=== PATIENT | female | born 1975 | race Caucasian/White ===

== ENCOUNTER 2024-11-03 09:12 | Day surgery (SDC) | payer BC, SELFPAY ==
--- NOTE | 2024-11-02 06:05 | PDOC.DSDIS_ITS ---
Date of service: 11/03/24 Discharge Plan Disposition Patient Disposition: Home Condition: Good Discharge Details Reason For Visit: screening colonoscopy Attending Provider: Iggy Pham Home Meds and New Rx's Prescriptions: Continued citalopram [Celexa] 20 mg tablet 20 mg PO DAILY CombiPatch 0.05-0.14 mg/24 hr patch semiweekly 1 patch transdermal ONCE Patient Comments: pt. wears for menopausal symptoms ergocalciferol (vitamin D2) 1,250 mcg (50,000 unit) capsule 1,250 mcg PO DAILY Discontinued bisacodyl [Dulcolax (bisacodyl)] 5 mg tablet,delayed release (DR/EC) 5 mg PO ONCE Qty: 4 0RF Rx Instructions: Take per colonoscopy instructions provided by ordering providers office polyethylene glycol 3350 17 gram/dose powder 17 g PO ONCE Qty: 238 0RF Rx Instructions: Take per colonoscopy instructions provided by ordering providers office Discharge Instructions Instructions: Colon polyps, Diverticulosis Additional Instructions: Tana, it was very nice meeting you today, and I hope you are comfortable through the colonoscopy. Everything went very smoothly. Your prep was e xcellent negative everything fine. I took great care to examine the ascending portion of your colon, which is where your previous polyp was reported. Although it is quite difficult to find exact areas where polyps were removed in the past, I certainly did not see anything that would suggest incomplete resection of that previous polyp. I did find 1 other separate polyp within your rectum. I did remove and retrieve this today. This polyp will be sent off for testing, and once I know the nature of it, I can offer you more specific recommendations regarding timing of future colonoscopies. Incidentally, he also have a little bit of diverticulosis. Diverticula are little weak spots in the muscular layer of the colon wall. This causes the inside lining of the colon, which is also called the mucosa, to pocket her pouch outwards through the muscular layer. These individual pockets are called diverticula. The condition of having them is noticed diverticulosis, and if they cause symptoms, which are typically experienced as quite sharp pain usually on the left lower side of the abdomen, and we refer to that as diverticulitis. Hopefully, your diverticula never bother you. Maintaining a diet that is rich in fiber, staying well- hydrated, and avoiding symptoms of constipation are the typical approaches in managing diverticular disease. I will attach some basic information here about colon rectal polyps, as well as diverticulosis. If you have any questions, or need anything, please do not hesitate to call, otherwise my office will be in touch once the polyp report is available. 1. If tolerated, consume a soft, low fiber diet for 1-2 days. 2[address] Do not drive, drink alcohol, operate machinery, make critical decisions, or do activities that require coordination or balance for 24 hours. 3. Because air was put into your colon during the procedure, expelling air from your rectum (passing gas or farting) is normal. 4. You may not have a bowel movement for 1-3 days because of the colonoscopy prep. This is normal. 5. Go directly to the emergency room if you notice any of the following: Develop chills (warm to touch), or if you have a thermometer and your temperature is above 101 Difficulty breathing or difficultly swallowing Persistent vomiting Severe abdominal pain, other than gas cramps Severe chest pain Black, tarry stools Any bleeding ? exceeding one tablespoon 6. Call your physician if the site where your intravenous was started becomes red, swollen, painful, and warm to touch. 7. Your physician has reviewed your pre-procedure medications. Please continue to take those medications as previously ordered. You will be given specific information/education regarding any changes to your medications before leaving. Stand Alone Forms: Anesthesia Discharge InstYolanda Angulo (DSU) Activity:: Activity as Tolerated Diet:: As Tolerated Discharge Orders Discharge Orders: Discharge Order (Routine); Ordered 11/02/24 Ordered By: Iggy Pham DS: Diagnosis Discharge Diagnosis (1) Encounter for screening colonoscopy: Status: Acute Asessment and Plan: Follow-up on polypectomy results
--- NOTE | 2024-11-02 06:06 | COLE_ITS ---
Date of service: 11/03/24 Time of Service: 11:21 Colonoscopy Report Date of procedure: 11/03/24 Pre-op diagnosis general: screening colonoscopy Post-op diagnosis procedure note: other (Rectal polyp, diverticulosis) Procedure: colonoscopy with polypectomy Surgeon: Iggy Pham Anesthesia Type: General:No Airway Estimated blood loss (mL): 5 Pathology: other (0.25 cm pedunculated rectal polyp) Complications: None Disposition: same day Indications: Tana is a 48 year old woman who underwent screening colonoscopy approximately 6 months ago. She underwent a polypectomy, however no specimen was captured. She was advisded to undergo a repeat colonoscopy Prep: Miralax/Dulcolax Procedure Start Time: 10:55 Procedure End Time: 11:10 Retraction Time: 8 Findings: Sigmoid diverticulosis, 0.25 cm rectal polyp Procedure Description: After the induction of anesthesia, and with Tana in left lateral decubitus position, I began by performing an external anorectal exam.? Perineum and skin were normal, as was the anal verge.? There was no evidence of external hemorrhoids.? Next, I performed a digital rectal exam.? I did not appreciate any abnormal findings.? Next, I advanced a colonoscope into the rectal vault.? I performed retroflexion.? This appeared normal.? Using insufflation, I then advanced the colonoscope beyond the rectal folds and the midportion of the rectal vault was a 0.25 cm pedunculated polyp.? This was removed with cold forceps polypectomy. There was minimal bleeding. I continued advancing over towards the right side of the colon. The scope was noted to be in the cecum by identification of the ileocecal valve and appendiceal orifice.? I then began withdrawing the colonoscope using repeated irrigation as necessary for full evaluation of the colonic mucosa. Great care was taken to thoughtfully examine the ascending colon as this was the site of previous polypectomy. I did not appreciate any abnormalities within the ascending colon. The transverse colon was also normal. While traversing the sigmoid section, there was obvious sigmoid diverticulosis. Once the scope was withdrawn to the level of the rectum, great care was taken to examine portions of the rectal folds.? Finally, the scope was withdrawn and the patient was brought to the same-day surgery recovery unit as the anesthetic wore off. ?The findings and instructions were shared with the patient prior to discharge. Oldenburg Bowel Prep Oldenburg Bowel Prep Right Colon: 3 Left Colon: 3 Transverse Colon: 3 Total Score: 9
[2024-11-03 09:43] VITALS: BP 107/83; PULSE 87; RESP 16; TEMP 36.5; O2SAT 99
[2024-11-03] MEDS: Lactated Ringers 1,000 ML 80 ML IV (09:48)
--- NOTE | 2024-11-03 10:32 | W.ANESPRE ---
General Info Date of Service Date Performed: 11/03/24 Height: 5 ft 7 in Weight: 88.3 kg Body Mass Index (BMI): 30.4 Surgical Procedure: Operation Date: 11/03/24 10:35 Proposed Procedure Side Surgeon p Colonoscopy Iggy Pham MD Actual Procedure Side Surgeon p Colonoscopy Not Applicable Iggy Pham MD Pre-Op Diagnosis Post-Op Diagnosis Screening colonoscopy Meds Allergies and Home Medications Allergies Allergy/AdvReac Type Severity Reaction Status Date / Time ciprofloxacin Allergy Unknown Swelling/Ed Verified 11/03/24 09:40 vik Home Medication ?Medication ?Instructions ?Recorded citalopram 20 mg tablet (Celexa) 20 mg PO DAILY 10/01/24 ergocalciferol (vitamin D2) 1,250 1,250 mcg PO DAILY 10/01/24 mcg (50,000 unit) capsule estradiol 0.05 mg-norethindrone 1 patch transdermal ONCE 10/01/24 0.14 mg/24 hr semiwkly transderm patch (CombiPatch) Current Visit Medications: Current Medications Generic Name Dose Route Start Last Admin Trade Name Freq PRN Reason Stop Dose Admin Ringer's Solution 1,000 mls @ 80 mls/hr 11/03/24 06:00 11/03/24 09:48 IV 11/03/24 23:59 80 mls/hr INFUSION KILLIAN Administration IV Miscellaneous Supplies 1 each 11/03/24 06:00 Iv Access IV 11/03/24 23:59 DIRECTED KILLIAN Sodium Chloride 0 ml 11/03/24 06:00 Normal Saline Flush 10 Ml Syr IV 11/03/24 23:59 PRN PRN Sodium Chloride 0 ml 11/03/24 06:00 Normal Saline 10 Ml Vial IJ 11/03/24 23:59 DIRECTED PRN Sterile Water 0 ml 11/03/24 06:00 Water,Injection,Sterile 10 Ml Vial IJ 11/03/24 23:59 DIRECTED PRN PFSH Active Problems Active Problems: Problem Status Onset Code Encounter for screening colonoscopy Acute Z12.11 Depressive disorder Chronic F32.A Medical History Medical History Fibroadenoma of right breast Family history of thyroid cancer Mother Family history of malignant melanoma of skin Father Axillary lymphadenopathy Eczema TMJ (temporomandibular joint disorder) Carpal tunnel syndrome Varicose veins of lower extremity Adjustment disorder Vitamin D deficiency Personal history of adenomatous and serrated colon polyps Surgical History Surgical History Hx of shoulder surgery pt. uncertain which side History of colonoscopy with polypectomy (~10/12/23) Done at [facility] [place] [facility] [place] large polyp was not captured by the filter, no tissue was sent. Based on size and appearance of the polyp, I suspect it is a sessile serrated adenoma. Recommend repeat in 6 months. Tobacco Smoking/Tobacco Use Status: Never Alcohol Alcohol Intake: current Alcohol intake frequency: 0-2 drinks per day Alcohol type: beer Substance Use Substance use type: does not use Details: alcohol: t-2, one beer Vital Signs and Lab Results Vital Signs Most Recent Vital Signs in EMR: Most Recent Vital Signs Temp Pulse Resp BP Pulse Ox 36.5 C 87 16 107/83 99 11/03/24 09:43 11/03/24 09:43 11/03/24 09:43 11/03/24 09:43 11/03/24 09:43 Lab Results Blood Type / Crossmatch: No Data to Display Complete Blood Count: No Data to Display Complete Metabolic Panel: No Data to Display Liver Function Panel: No Data to Display Coagulation Panel: No Data to Display Cardiac Panel: No Data to Display Arterial Blood Gas: No Data to Display Venous Blood Gas: No Data to Display Pancreas Panel: No Data to Display Thyroid Panel: No Data to Display Infectious Disease: No Data to Display Blood Cultures: No Data to Display Toxicology Panel: No Data to Display Panel: No Data to Display Anesthesia Assessment and Plan Anesthesia History Personal History: No History of Anesthesia Complications Family History: No Family History of Anesthesia Complications Exercise Tolerance Exercise Tolerance: Metabolic Equivalents>4 Pertinent Negatives Pertinent Negatives: No Symptoms of GERD (Rare) Cardiac & Pulmonary Exam Cardiac Exam: Normal S1/S2 Heart Sounds Pulmonary Exam: Clear Bilateral Breath Sounds Implantable Cardiac Device Does patient have a Pacemaker or an ICD?: No Airway Exam Known Difficult Airway: No Mallampati Class: 2 Mouth Opening: Normal (> 3cm) Thyromental Distance: Greater than 3 cm Neck Range of Motion: Full ROM Neck Circumference: Normal Teeth Condition: Normal Dentition ASA Classification ASA Score: ASA 2 Emergency Case?: No NPO Status NPO Status: NPO Clears >2 hours, Solids >8 hours Status Status: Not Relevant due to Medical History (post-menopause) Anesthesia Plan Resuscitation Status: Full Code Anesthesia Technique: General Anesthesia Airway Planned: Natural Airway Monitors Used: Standard Monitors
[2024-11-03 10:34] VITALS: BMI 30.4
--- NOTE | 2024-11-03 10:58 | BOWEL_PTH ---
PATIENT: Tana Lazcano LOC: [facility] U#:[id number] AGE/SX: 48/F ROOM: RE11/03/[address]: Iggy Pham MD : 1975 BED: DIS: 11/03/2024 SPEC #: [id number] RECD: 11/03/24 13:06 STATUS: REGINA RE #: [id number] EDGAR: 11/03/24 10:[address]: Iggy Pham DEPT: Surgical Specimen RECD BY: Prudence Witt Tissues: 1 - BIOPSY BOWEL Procedures: GROSS AND MICRO LEVEL 4 Comments: [id number]
[2024-11-03 11:16] VITALS: BP 121/85; PULSE 83; RESP 17; TEMP 36.2; O2SAT 94
--- NOTE | 2024-11-03 11:22 | W.ANESPOSTOP ---
Postoperative Evaluation Date, Time and Location Date Performed: 11/03/24 Time Performed: 11:22 Patient Location: Day Surgery Unit Vital Signs Most Recent Imported Vital Signs: Most Recent Vital Signs Temp Pulse Resp BP Pulse Ox 36.5 C 87 16 107/83 99 11/03/24 09:43 11/03/24 09:43 11/03/24 09:43 11/03/24 09:43 11/03/24 09:43 Pain Score Most Recent Pain Score: Most Recent Pain Score Pain Level 0 11/03/24 09:43 Assessment Mental Status: Awake (Alert & Oriented to Patient Baseline) Airway and Respiratory Function: Patent airway with normal (patient baseline) respiratory exam Cardiovascular Function: Hemodynamically Stable Hydration Status: Adequately Hydrated Nausea & Vomiting: No Nausea or Vomiting Pain: Pt. Denies Any Pain Peripheral Nerve Block: Patient did not receive a nerve block
[2024-11-03 11:48] VITALS: BP 113/88; PULSE 56; RESP 16; TEMP 36.2; O2SAT 100
== END 2024-11-03 11:52 | disposition home or self-care (01) ==
LOC: SUR 09:12
PROVIDERS: Visit Provider Surgery
PROC: 0DJD8ZZ Inspection of Lower Intestinal Tract, Via Natural or Artificial Opening Endoscopic (ICD-10-PCS; CPT 45378; principal; 2024-11-03 10:30)
DX: Z12.11 Encounter for screening for malignant neoplasm of colon (principal); K62.1 Rectal polyp; K57.30 Diverticulosis of large intestine without perforation or abscess without bleeding
CPT/HCPCS: 45380; 88305; J2003; J2704

== ENCOUNTER 2025-03-19 17:43 | Emergency (ER) | payer BC, SELFPAY ==
[2025-03-19 17:51] VITALS: BP 127/83; PULSE 70; RESP 16; TEMP 36.9; O2SAT 98
[2025-03-19 17:53] VITALS: BP 127/83; PULSE 70; RESP 16; TEMP 36.9; O2SAT 98
[2025-03-19 19:30] LABS: HCT 41.6 % (36.0-46.0); HGB 13.5 g/dL (11.2-15.7); MCH 30.3 pg (27.0-33.0); MCHC 32.5 % (32.0-36.0); MCV 93 fL (80-95); MPV 10.2 fL (8.0-11.0); Platelet Count 282 10^3/uL (130-400); RBC 4.46 10^6/uL (3.93-5.22); RDW-SD 41.5 fL; WBC 4.28 10^3/uL (4.4-10.8)
[2025-03-19] MEDS: Normal Saline 1,000 ML 1000 ML IV (19:41)
[2025-03-19 19:46] LABS: ALT 23 U/L (14-59); AST 16 U/L (15-37); Albumin 3.4 g/dL (3.4-5.0); Alkaline Phosphatase 91 U/L (46-116); Anion Gap 6.7 mmol/L (3-11); BUN 11 mg/dL (7-18); Bilirubin, Total 0.3 mg/dL (0.2-1.0); CO2 29.3 mmol/L (21.0-32.0); CREATININE 0.8 mg/dL (0.55-1.02); Calcium 9.7 mg/dL (8.5-10.1); Chloride 103 mmol/L (98-107); Estimated GFR 89.15 (mL/min/1.73m2); Glucose 95 mg/dL (74-106); Lipase 34 U/L (<78); Potassium 3.9 mmol/L (3.5-5.1); Sodium 139 mmol/L (136-145); Total Protein 7.3 g/dL (6.4-8.2)
[2025-03-19 19:54] LABS: Absolute Eosinophil Count 0.26 10^3/uL (0.0-0.7); Absolute Lymphocyte Count 1.93 10^3/uL (1.2-3.4); Atypical Lymphocytes % 3 %; Diff Comment Manual Differential; RBC Morphology Normal
[2025-03-19] MEDS: Omnipaque 350 MG/ML 100 ML BTL IJ (20:21)
--- NOTE | 2025-03-19 20:21 | ED.GENADUL_ITS ---
Discharge Plan Disposition Patient Disposition: Home Condition: Stable Discharge Details Clinical Impression: Diverticulitis, Abdominal pain, Lesion of liver Primary Care Provider: Jennifer Mckinley ED Provider: Lee Ann Alexander Home Meds and New Rx's Prescriptions: New ondansetron 4 mg tablet,disintegrating 4 mg PO Q6H PRN (Reason: nausea and vomiting) Qty: 30 0RF Discharge Instructions Instructions: Diverticulitis (DC) Additional Instructions: * CT imaging does demonstrate acute diverticulitis in a small segment of your colon. * please adhere to liquid diet for the next week. take pain and nausea medication as needed * return with fever, severe pain or not tolerating liquids * follow up with surgery clinic for colonoscopy in 6-8 weeks after resolution of symptoms * there was an incidental liver lesion found, this appears benign but guidelines recommend an outpatient MRI. this can be ordered thru your PCP office. HPI General Date/Time Provider Initiated Documentation: 03/19/25 19:00 . Limitations to Documentation: no limitations . Information obtained by: patient . HPI Narrative: 49-year-old female without significant past medical history presents for evaluation of abdominal pain. She reports that she has been having symptoms for the last 3 to 4 days. She is having lower pain that now seems to be more in the right lower quadrant. It is associated with some nausea, but no vomiting. Subjective fever the first day. She has not had much of an appetite. Related Data Home Medications ?Medication ?Instructions ?Recorded ?Confirmed ondansetron 4 mg disintegrating 4 mg PO Q6H PRN nausea and 03/19/25 tablet vomiting #30 tabs Previous Rx's ?Medication ?Instructions ?Recorded ondansetron 4 mg disintegrating 4 mg PO Q6H PRN nausea and 03/19/25 tablet vomiting #30 tabs Allergies Allergy/AdvReac Type Severity Reaction Status Date / Time ciprofloxacin Allergy Unknown Swelling/Ed Verified 03/19/25 17:53 vik General Stated Complaint: Abd Prob KARLA: 3 Exam Narrative Exam Narrative: Review of Systems: All systems reviewed & are unremarkable except as noted in HPI and below Well-developed, no acute distress NCAT PERRL, normal conjunctiva RRR Unlabored respiratory effort Nondistended abdomen mild lower tenderness without guarding or rebound Course Vital Signs Vital signs: Vital Signs Temperature 36.9 C 03/19/25 17:51 Pulse 70 03/19/25 17:51 Respiratory Rate 16 03/19/25 17:51 Blood Pressure 127/83 03/19/25 17:51 Pulse Oximetry 98 03/19/25 17:51 Temperature 36.9 C 03/19/25 17:53 Pulse 70 03/19/25 17:53 Respiratory Rate 16 03/19/25 17:53 Blood Pressure 127/83 03/19/25 17:53 Pulse Oximetry 98 03/19/25 17:53 Pain Level 1 03/19/25 17:53 Lab/Test Results Lab/Test Results: Laboratory Tests Range/Units 03/19/25 19:20 WBC (4.4-10.8) 10^3/uL 4.28 L RBC (3.93-5.22) 10^6/uL 4.46 Hgb (11.2-15.7) g/dL 13.5 Hct (36.0-46.0) % 41.6 MCV (80-95) fL 93 MCH (27.0-33.0) pg 30.3 MCHC (32.0-36.0) % 32.5 RDW (11.7-14.6) % 12.0 Plt Count (130-400) 10^3/uL 282 MPV (8.0-11.0) fL 10.2 Immature Gran % See Differential Neutrophils % % 42.0 Lymphocytes % % 42.0 Atypical Lymphs % % 3 Monocytes % % 7.0 Eosinophils % % 6.0 Basophils % % 0.0 Nucleated RBC % (0.0-0.3) % 0.0 Absolute Neutrophils (1.2-6.7) 10^3/uL 1.80 Absolute Lymphocytes (1.2-3.4) 10^3/uL 1.93 Absolute Monocytes (0.1-0.8) 10^3/uL 0.30 Absolute Eosinophils (0.0-0.7) 10^3/uL 0.26 Absolute Basophils (0.0-0.2) 10^3/uL 0.00 RBC Morphology Normal Sodium (136-145) mmol/L 139 Potassium (3.5-5.1) mmol/L 3.9 Chloride (98-107) mmol/L 103 Carbon Dioxide (21.0-32.0) mmol/L 29.3 Anion Gap (3-11) mmol/L 6.7 BUN (7-18) mg/dL 11 Creatinine (0.55-1.02) mg/dL 0.8 Est GFR (CKD-EPI 2020) (mL/min/1.73m2) 89.15 Glucose (74-106) mg/dL 95 Calcium (8.5-10.1) mg/dL 9.7 Total Bilirubin (0.2-1.0) mg/dL 0.3 AST (15-37) U/L 16 ALT (14-59) U/L 23 Alkaline Phosphatase (46-116) U/L 91 Total Protein (6.4-8.2) g/dL 7.3 Albumin (3.4-5.0) g/dL 3.4 Lipase (<78) U/L 34 Medical Decision Making Emergent evaluation of abdominal pain. Symptoms have been going on for a few days not associated with fever or vomiting. She has a fairly benign examination without any signs of peritonitis. Lab work was obtained there is mild leukopenia, no anemia, electrolytes are without derangement. Renal and liver function are within normal limits. There is no elevation in lipase to indicate pancreatitis. She does not have signs of UTI on her urinalysis. The patient received a CT scan to evaluate for intra-abdominal pathology. Radiographs were reviewed and report from the rad indicates that there is a short segment of acute diverticulitis in the proximal sigmoid colon. Given her reassuring lab work and benign physical examination at this time there is no recommendation for antibiotic therapy based on current guidelines. Will recommend liquid diet, prescribe Zofran, Tylenol as needed and follow-up for reevaluation. Return precautions advised. Of note there was an incidental liver lesion finding on her CT. patient updated on this finding and advised to get outpatient MRI via her PCP. PFSH All Active Problems (Updated 03/19/25 @ 21:40 by Lee Ann Alexander MD) Lesion of liver (Acute) Abdominal pain (Acute) Diverticulitis (Chronic) Depressive disorder (Chronic) Medical History Fibroadenoma of right breast Family history of thyroid cancer Mother Family history of malignant melanoma of skin Father Axillary lymphadenopathy Eczema TMJ (temporomandibular joint disorder) Carpal tunnel syndrome Varicose veins of lower extremity Adjustment disorder Vitamin D deficiency Personal history of adenomatous and serrated colon polyps Surgical History Hx of shoulder surgery pt. uncertain which side History of colonoscopy with polypectomy (~10/2024) Done at [facility] [place] [place]- large polyp was not captured by the filter, no tissue was sent. Based on size and appearance of the polyp, I suspect it is a sessile serrated adenoma. Recommend repeat in 6 months. Social History Smoking/Tobacco Use Status: Never Smoking risk assessment performed?: Yes Alcohol Intake: current Alcohol Intake frequency: a few times a week Alcohol type: beer Substance use type: does not use Housing: house Do you feel safe at home: Yes Do you feel safe in your relationship?: Yes History History 2 Para 2 Hx # Term Pregnancies 1 Multiple births Hx # Pregnancies 1 Ectopic pregnancies AB induced Hx Number of Living Children 2 AB spontaneous Past Pregnancies Del. Date GA/Weeks # Preg Succ Route Wgt Sex Labor Lgth Anesth esia Location Prov Complic 07/26/06 36 No Yes vaginal Male [place] 03/22/09 40 No Yes vaginal Female vt PAWSS Have you Been Recently Intoxicated or Drunk Within the Last 30 days?: Yes Have you Ever Experienced Previous Episodes of Alcohol Withdrawal?: No Have you ever Experienced Withdrawal Seizures?: No Have you ever Experienced Delirium Tremens(DT)s?: No Have you ever undergone Alcohol Rehabilitation Treatment (i.e, inpt ot outpat ient treatment programs)?: No Have you ever Experienced Blackouts?: No Have you ever Combined Alcohol with other Downers within the last 90 days?: No Have you ever Combined Alcohol with any other Substance of Abuse during the last 90 days?: No Positive Blood Alcohol level on Presentation? [PCS.BAL]: No Result: 1
[2025-03-19] MEDS: Normal Saline - Diluent 50 ML VIAL IJ (20:22)
--- NOTE | 2025-03-19 20:23 | DI.CT_ITS ---
Exam(s) CT ABDOMEN PELVIS W EXAM: CT ABDOMEN PELVIS W CLINICAL HISTORY: abd pain TECHNIQUE: Imaging Protocol: Axial computed tomography images with coronal and sagittal reformatted images were created and reviewed. CONTRAST MATERIAL: Intravenous: Omnipaque 350 Contrast volume:100 mL Oral: No COMPARISON: US US PELVIS TRANSVAGINAL from 01/22/2025 FINDINGS: ABDOMEN: Lung Bases: No acute abnormality. There is a small hiatal hernia. Liver: Normal density. There is an ill-defined 1.6 cm hypodense lesion in the posterior segment of the right lobe of the liver. Portal, Superior Mesenteric, and Splenic Veins: Unremarkable. Gallbladder and Biliary Tract: No radiodense calculus or dilation. Pancreas: Normal density, no abnormal calcifications or inflammatory process. Spleen: Normal. Adrenals: No masses seen. Kidneys: Normal size, contour and axis. No radiodense stones or obstructive uropathy. No masses seen. Abdominal Aorta: Abdominal portion non-dilated. Bowel: There is diverticulosis of the colon. There is mild inflammation seen around the mid sigmoid colon consistent with acute diverticulitis. There is no evidence of bowel obstruction. Appendix is unremarkable. Peritoneal Cavity: No ascites, collection or mesenteric inflammatory response. No free air. Lymph Nodes: Within normal limits. Bones: Within normal limits for the patient's age. Soft Tissues: Unremarkable. PELVIS: Bladder: Symmetric distention, no gross wall thickening. Reproductive Organs: There is a lobulated contour of the uterus particularly on the left consistent with fibroids. Uterine fibroids were visualized on the ultrasound from 01/22/2025. Lymph Nodes: Within normal limits. Bones: Within normal limits for the patient's age. IMPRESSION: 1. Findings consistent with acute sigmoid diverticulitis. There is no abscess or free air. 2. Ill-defined 1.6 cm hypodensity in the posterior segment of the right lobe of the liver. Nonemergent follow-up with an MRI of the liver without and with contrast is recommended. 3. The preliminary [facility] report was reviewed. Unexpected findings RADIATION DOSE DELIVERED: 720.24mGy.cm Total DLP DATA REPOSITORY: All CT scans at this facility are submitted to the National Radiology Data Registry (NRDR) Dose Index Registry (DIR) with the [employer] ([employer]). RADIATION OPTIMIZATION: All CT scans at this facility use at least one of these dose optimization techniques: automated exposure control; mA and/or kV adjustment per patient size (includes targeted exams where dose is matched to clinical indication); or iterative reconstruction.
[2025-03-19 20:37] LABS: Bilirubin Negative (Negative); Blood Negative (Negative); Clarity Clear (Clear); Glucose Negative (Negative); Ketones Negative (Negative); Leukocyte Esterase Trace (Negative); Nitrite Negative (Negative); Specific Gravity <= 1.005 (1.005-1.025); Urobilinogen 0.2 mg/dL (Up to 0.2); pH 5.5 (5-8)
[2025-03-19 20:46] LABS: Bacteria Moderate HPF (Negative); C & S Indicated? No; Casts Negative LPF (Negative); Crystals Negative HPF (Negative); Epithelial Cells Few HPF (Negative); Mucus Negative (Negative); RBC Negative HPF (0-2)
--- NOTE | 2025-03-19 21:27 | DI.VRAD_ITS ---
PROCEDURE INFORMATION: Exam: CT Abdomen And Pelvis With Contrast Exam date and time: 03/19/2025 8:12 PM Age: 49 years old Clinical indication: Abdominal pain; Generalized; Abd pain TECHNIQUE: Imaging protocol: Computed tomography of the abdomen and pelvis with contrast. Radiation optimization: All CT scans at this facility use at least one of these dose optimization techniques: automated exposure control; mA and/or kV adjustment per patient size (includes targeted exams where dose is matched to clinical indication); or iterative reconstruction. Contrast material: [id number]; Contrast volume: 100 ml; Contrast route: INTRAVENOUS (IV); COMPARISON: US PELVIS TRANSVAGINAL 01/22/2025 10:11 AM FINDINGS: Lungs: Mild scarring in the medial right middle lobe and inferior lingula. Liver: 16 mm hypoattenuating lesion in the posterior liver. Liver is otherwise unremarkable. Gallbladder and biliary ducts: Normal. No calcified stones. No ductal dilation. Pancreas: Normal. No ductal dilation. Spleen: Normal. No splenomegaly. Adrenal glands: Normal. No mass. Kidneys and ureters: Normal. No hydronephrosis. Stomach and bowel: Scattered colonic diverticula. Short-segment mural thickening and pericolonic fat stranding of the proximal sigmoid colon. No dilated small bowel. Appendix: Normal appendix. Intraperitoneal space: No intraperitoneal free fluid or free air. Vasculature: Unremarkable. No abdominal aortic aneurysm. Lymph nodes: Unremarkable. No enlarged lymph nodes. Urinary bladder: Urinary bladder is only partially distended. Reproductive: 2.4 cm fundal uterine subserosal fibroid. No adnexal mass. Bones/joints: L4-L5 facet arthropathy and mild degenerative disc disease. No acute fracture or focal suspicious osseous lesion. Soft tissues: Small right-sided Bochdalek's hernia. IMPRESSION: 1. Short-segment acute diverticulitis of the proximal sigmoid colon. No evidence of perforation. 2. Fundal subserosal fibroid. 3. 16 mm hypoattenuating lesion in the posterior right lobe of the liver. Further evaluation with non-emergent liver MRI is recommended. (Reference: Zach) REFERENCES: Zach TAYLOR, et al. Management of Incidental Liver Lesions on CT: A White Paper of the ACR Incidental Findings Committee. J Am Janine Radiol. 2017;14(11):6669-0415. Dictated and Authenticated by: Jovi Raza MD. Orderin Benjamin Ibarra MD
[2025-03-19] MEDS: Ondansetron O.D.T. 4 MG TABEF, 3 TABS/BTL PO (21:57)
[2025-03-19 22:04] VITALS: BP 119/64; PULSE 66; RESP 16; O2SAT 98
== END 2025-03-19 22:04 | disposition home or self-care (01) ==
PROVIDERS: Emergency Provider Emergency Medicine; PCP Physician Assistant Medical
DX: R10.31 Right lower quadrant pain; K76.9 Liver disease, unspecified; K57.32 Diverticulitis of large intestine without perforation or abscess without bleeding
CPT/HCPCS: 99284; 99285; 80053; 83690; 96360; 74177; 81003; 81015; 85025; J3490

== ENCOUNTER 2025-05-01 00:45 | Outpatient (CLI) | payer BC, SELFPAY ==
--- NOTE | 2025-05-01 | DI.MRI_ITS ---
Exam(s) MR ABDOMEN WO/W EXAM: MR ABDOMEN WO/W CLINICAL HISTORY: ABNL LIVER CT, R93.2, ABNL FINDINGS LIVER/BILIARY TRACT TECHNIQUE: Multiplanar multisequence MRI was performed with both pre and post contrast infused sequences. Contrast injected sequences were performed following IV injection of 19 cc of Dotarem. COMPARISON: CT CT ABDOMEN PELVIS W from 03/19/2025 03/19/2025 was reviewed. FINDINGS: VISUALIZED LUNG BASES: No pleural effusions evident. There is no ascites evident. LIVER: The previously described 1.6 cm lesion in the right hepatic lobe is noted. This is slightly lobulated and is T2 hyperintense and T1 hypointense. Following contrast injection it exhibits progressive centripetal enhancement with small remaining hypointense center, findings consistent with benign cavernous hemangioma. There are no other significant lesions in the liver. BILIARY: There is no obvious gallbladder pathology. The CBD is not dilated. PANCREAS: There is no evidence of pancreatic mass nor dilatation of the pancreatic duct. SPLEEN: Spleen is not enlarged and there are no intrasplenic lesions.Splenic and portal veins are patent ADRENALS: There are no significant adrenal masses. KIDNEYS: No solid renal masses. No hydronephrosis.No cysts evident. ABDOMINAL AORTA: Not enlarged and there is no significant para-aortic adenopathy. ANTERIOR ABDOMINAL WALL/GI: There is no evidence of significant anterior abdominal wall hernia in the field of view of this study.Is no evidence of obvious bowel obstruction. OSSEOUS: There are no lytic osseous lesions in the field of view of this study. IMPRESSION: 1. There is a 1.6 cm finding in the right hepatic lobe which corresponds to it was described on the recent CT scan of 03/19/2025. On contrast infused MRI it has the appearance of a benign cavernous hemangioma. Appropriate follow-up would be repeat imaging in 1 year to ensure stability. 2. No other significant focal findings in the upper abdomen. DATA REPOSITORY:
[2025-05-01] MEDS: Gadoterate meglumine 20 ML VIAL 19 ML IVP (09:22)
[2025-05-01] MEDS: Normal Saline - Diluent 50 ML VIAL 25 ML IJ (09:23)
== END 2025-05-01 01:05 ==
LOC: DI 00:45
PROVIDERS: PCP Physician Assistant Medical; Visit Provider Physician Assistant Medical
DX: R93.2 Abnormal findings on diagnostic imaging of liver and biliary tract (principal)
CPT/HCPCS: 74183